=== PATIENT | male | born 1990 | race Hispanic/Latino ===

== ENCOUNTER 2017-07-16 17:51 | Emergency (ER) | payer OTHER ==
[2017-07-16 18:07] VITALS: TEMP 98.7
--- NOTE | 2017-07-16 18:46 | ED PDOC ---
Arrival/HPI - General Chief Complaint: Rib Injury Time Seen by Provider: 07/16/17 18:12 Historian: Patient - History of Present Illness Narrative History of Present Illness (Text): 07/16/17 19:30 26yo male with PMHx of Asthma who present to ED with complaint of right sided rib pain x 3days. He states he injured the rib 2days ago, when he tackled another player during a football game. States he did not take any pain medication. Pain is worse with deep inspiration and movement. Denies chest pain , SOB, diaphoresis, any other complaint. Past Medical History - Provider Review Nursing Documentation Reviewed: Yes - Cardiac Hx Cardiac Disorders: No - Pulmonary Hx Respiratory Disorders: Yes Hx Asthma: Yes - Neurological Hx Neurological Disorder: No - HEENT Hx HEENT Disorder: No - Renal Hx Renal Disorder: No - Endocrine/Metabolic Hx Endocrine Disorders: No - Hematological/Oncological Hx Blood Disorders: No - Integumentary Hx Dermatological Disorder: No - Musculoskeletal/Rheumatological Hx Musculoskeletal Disorders: Yes Other/Comment: KNEE INJURY - Gastrointestinal Hx Gastrointestinal Disorders: No - Genitourinary/Gynecological Hx Genitourinary Disorders: No - Psychiatric Hx Psychophysiologic Disorder: No Hx Substance Use: No - Surgical History Hx Orthopedic Surgery: Yes Family/Social History - Physician Review Nursing Documentation Reviewed: Yes Family/Social History: Unknown Family HX Smoking Status: Never Smoked Hx Alcohol Use: Yes Frequency of alcohol use: Socially Hx Substance Use: No Allergies/Home Meds Allergies/Adverse Reactions: Allergies No Known Allergies Allergy (Verified 07/16/17 18:02) Review of Systems - Physician Review All systems were reviewed & negative as marked: Yes - Review of Systems Constitutional: Normal Eyes: Normal ENT: Normal Respiratory: Normal Cardiovascular: Normal Gastrointestinal: Normal Genitourinary Male: Normal Musculoskeletal: Arthralgias (Right ribs pain) Skin: Normal Neurological: Normal Endocrine: Normal Hemo/Lymphatic: Normal Psychiatric: Normal Physical Exam Vital Signs Reviewed: Yes Vital Signs Temp Pulse Resp BP Pulse Ox 07/16/17 18:02 98.7 F 75 16 129/73 100 Temperature: Afebrile Blood Pressure: Normal Pulse: Regular Respiratory Rate: Normal Appearance: Positive for: Well-Appearing, Non-Toxic, Comfortable Pain Distress: None Mental Status: Positive for: Alert and Oriented X 3 - Systems Exam Head: Present: Atraumatic, Normocephalic Pupils: Present: PERRL Extroacular Muscles: Present: EOMI Conjunctiva: Present: Normal Mouth: Present: Moist Mucous Membranes Neck: Present: Normal Range of Motion Respiratory/Chest: Present: Clear to Auscultation, Good Air Exchange, Tender to Palpation (Right lateral and posterior ribs). No: Respiratory Distress, Accessory Muscle Use, Wheezes, Decreased Breath Sounds, Rales, Retracting, Rhonchi, Tachypneic Cardiovascular: Present: Regular Rate and Rhythm, Normal S1, S2. No: Murmurs Abdomen: No: Tenderness, Distention, Peritoneal Signs Back: Present: Normal Inspection Upper Extremity: Present: Normal Inspection. No: Cyanosis, Edema Lower Extremity: Present: Normal Inspection. No: Edema Neurological: Present: GCS=15, CN II-XII Intact, Speech Normal Skin: Present: Warm, Dry, Normal Color. No: Rashes Psychiatric: Present: Alert, Oriented x 3, Normal Insight, Normal Concentration Medical Decision Making ED Course and Treatment: 07/16/17 20:11 Right rib xray - No acute fracture noted. Pt was advised that he will be notify if official xray reading is different. His pain was controlled in ED with medication. He was given a spirometry and rx of Naprosyn was given for pain - RAD Interpretation Radiology Orders: 07/16/17 18:15 RIBS RIGHT & PA CHEST [RAD] Stat - Medication Orders Current Medication Orders: Discontinued Medications Ketorolac Tromethamine (Toradol) 60 mg IM STAT STA Stop: 07/16/17 18:16 Disposition/Present on Arrival - Present on Arrival Any Indicators Present on Arrival: No History of DVT/PE: No History of Uncontrolled Diabetes: No Urinary Catheter: No History of Decub. Ulcer: No History Surgical Site Infection Following: None - Disposition Have Diagnosis and Disposition been Completed?: Yes Diagnosis: Sprain of ribs Disposition: HOME/ ROUTINE Disposition Time: 19:35 Patient Plan: Discharge Patient Problems: Current Active Problems Problem Status Onset Sprain of ribs Acute Condition: STABLE Discharge Instructions (ExitCare): Bruised Rib (DC) Additional Instructions: Follow up with your Doctor Return to ED for any new or worsening symptoms Prescriptions: Naproxen [Naprosyn] 500 mg PO BID #20 tablet Referrals: Shweta Corona MD [Primary Care Provider] - Follow up with primary Forms: [employer] ([place])
[2017-07-16 20:51] VITALS: BP 130/71; PULSE 80; RESP 18; O2SAT 99
--- NOTE | 2017-07-17 09:46 | RAD ---
PROCEDURE: Radiographs of the Chest and Right Ribs. HISTORY: rib pain s/p trauma COMPARISON: None available. TECHNIQUE: Frontal radiograph of the chest and multiple oblique radiographs of the right ribs were obtained. FINDINGS: RIGHT RIBS: No acute fracture or focal lesion visualized. LUNGS: The lungs are well inflated and clear. PLEURA: No pneumothorax or pleural fluid. CARDIOVASCULAR: Normal sized heart. No pulmonary vascular congestion. OTHER FINDINGS: None. IMPRESSION: No acute rib fracture. Clear lungs.
== END 2017-07-16 20:23 | disposition home or self-care (01) ==
LOC: ED 17:51 → MERGE 17:51 → ED 20:23
DX: S23.41XA Sprain of ribs, initial encounter (principal); X50.0XXA Overexertion from strenuous movement or load, initial encounter; Y93.61 Activity, american tackle football; Y92.39 Other specified sports and athletic area as the place of occurrence of the external cause

== ENCOUNTER 2017-12-07 01:44 | Emergency (ER) | payer OTHER ==
[2017-12-07 01:45] VITALS: BMI 20.2
[2017-12-07 02:02] VITALS: TEMP 97.5
[2017-12-07] MEDS ORDERED: Alum-Mag Hydrox-Simethicone Susp (30 mL) PO STA (02:06)
--- NOTE | 2017-12-07 02:15 | ED PDOC ---
Arrival/HPI - General Chief Complaint: Chest Pain Time Seen by Provider: 12/07/17 01:45 Historian: Patient - History of Present Illness Narrative History of Present Illness (Text): 12/07/17 02:07 27 year old male, with past medical history of asthma, presents to the Emergency department accompanied by girl friend complaining of chest pain radiating to mid to upper back since 1:10 am this morning. Patient informs waking up with a sharp, shooting pain prompting him to present to the Emergency department for medical evaluation. Patient informs associated nausea but denies any episodes of vomiting. Patient states eating peanut butter and jelly sandwich and a protein bar before going to bed at 11pm last night. Pt notes pain occured after he vomited x1. Patient denies following up with a sheriffs in the past and denies any history of blood clots. Patient denies any fevers, chills, headache, dizziness, shortness of breath, dyspnea on exertion, cough, abdominal pain, diarrhea, neck pain, or any other complaints. Patient currently denies any social or work-related stress. Patient denies smoking tobacco and informs attending the gym 5 times a week. Time/Duration: Prior to Arrival Symptom Onset: Gradual Symptom Course: Unchanged Quality: Pressure Activities at Onset: Sleeping Context: Home Past Medical History - Provider Review Nursing Documentation Reviewed: Yes - Travel History Have you recently traveled outside [place] w/in the past 3 mons?: No - Infectious Disease Hx of Infectious Diseases: None - Cardiac Hx Cardiac Disorders: No - Pulmonary Hx Respiratory Disorders: Yes Hx Asthma: Yes - Neurological Hx Neurological Disorder: No - HEENT Hx HEENT Disorder: No - Renal Hx Renal Disorder: No - Endocrine/Metabolic Hx Endocrine Disorders: No - Hematological/Oncological Hx Blood Disorders: No - Integumentary Hx Dermatological Disorder: No - Musculoskeletal/Rheumatological Hx Musculoskeletal Disorders: Yes Other/Comment: KNEE INJURY - Gastrointestinal Hx Gastrointestinal Disorders: No - Genitourinary/Gynecological Hx Genitourinary Disorders: No - Psychiatric Hx Psychophysiologic Disorder: No Hx Substance Use: No - Surgical History Hx Orthopedic Surgery: Yes - Anesthesia Hx Anesthesia: No Family/Social History - Physician Review Nursing Documentation Reviewed: Yes Family/Social History: No Known Family HX Smoking Status: Never Smoked Hx Alcohol Use: Yes Hx Substance Use: No Allergies/Home Meds Allergies/Adverse Reactions: Allergies No Known Allergies Allergy (Verified 12/07/17 01:50) Review of Systems - Physician Review All systems were reviewed & negative as marked: Yes - Review of Systems Constitutional: absent: Fevers Respiratory: absent: SOB, Cough Cardiovascular: Chest Pain. absent: [place] Gastrointestinal: Nausea, Vomiting. absent: Abdominal Pain, Diarrhea Musculoskeletal: Back Pain. absent: Neck Pain Neurological: absent: Headache, Dizziness Physical Exam Vital Signs Reviewed: Yes Vital Signs Temp Pulse Resp BP Pulse Ox 12/07/17 02:29 60 13 102/68 97 12/07/17 02:00 97.5 F L 12/07/17 01:52 48 L 18 104/73 100 Temperature: Afebrile Blood Pressure: Normal Pulse: Bradycardic Respiratory Rate: Normal Appearance: Positive for: Well-Appearing, Non-Toxic, Comfortable Pain Distress: None Mental Status: Positive for: Alert and Oriented X 3 - Systems Exam Head: Present: Atraumatic, Normocephalic Pupils: Present: PERRL Extroacular Muscles: Present: EOMI Conjunctiva: Present: Normal Neck: Present: Normal Range of Motion Respiratory/Chest: Present: Clear to Auscultation, Good Air Exchange. No: Respiratory Distress, Accessory Muscle Use Cardiovascular: Present: Regular Rate and Rhythm, Normal S1, S2. No: Murmurs Abdomen: No: Tenderness, Distention, Peritoneal Signs Back: Present: Normal Inspection. No: CVA Tenderness, Paraspinal Tenderness Upper Extremity: Present: Normal Inspection. No: Cyanosis, Edema Lower Extremity: Present: Normal Inspection. No: Edema Neurological: Present: GCS=15, CN II-XII Intact, Speech Normal Skin: Present: Warm, Dry, Normal Color. No: Rashes Psychiatric: Present: Alert, Oriented x 3, Normal Insight, Normal Concentration Medical Decision Making ED Course and Treatment: 12/07/17 02:10 Impression: 27 year old male presents to the Emergency department for chest pain associated with nausea. Chest pain is not a ripping pain. Pt notes that father had a CA when father was young- but father was a very heavy smoker and pt is unsure if father did drugs. Pt denies any drug use. Pt kezia, in previous EKG. Pt notes that he is plays soccer alot and does gym x5 a week. Likely slow resting HR 2/2 excercise, physical fitness. Heart Score pending trop Story: 0 RF: 1 (father) age: 0 EK Troponin: pending Low Risk heart score. Plan: -- Labs -- Chest X-ray -- Pepcid -- Tylenol -- Maalox -- Reassess and disposition Prior Visits: Notes and results from previous visits were reviewed. Progress Notes: 12/07/17 02:08 EKG: Ordered, reviewed, and independently interpreted the EKG. Rate : 48 BPM Rhythm : Sinus Bradycardia Interpretation : Early repolarization. Comparison : Unchanged EKG from 09/18/14. 12/07/17 03:01 Chest X-ray reviewed, shows no acute processes. Unremarkable Chest X-ray. No widened mediastinum multiple episodes of vomiting per pt, followed by improvement in pain 12/07/17 03:52 Troponin negative Heart score 1: Low risk CP. 12/07/17 04:29 pt resting comfortable in bed, tolerating clears. stable for d/c home - Lab Interpretations Lab Results: 12/07/17 01:58 12/07/17 01:58 Lab Results 12/07/17 01:58: Sodium 142, Potassium 4.2, Chloride 103, Carbon Dioxide 23, Anion Gap 20, BUN 32 H, Creatinine 1.3, Est GFR ( Amer) > 60, Est GFR ( Non-Af Amer) > 60, Random Glucose 122 H, Calcium 9.5, Total Bilirubin 0.5, AST 36, ALT 35, Alkaline Phosphatase 82, Troponin I < 0.01, Total Protein 7.6, Albumin 4.6, Globulin 3.0, Albumin/Globulin Ratio 1.6, Lipase 132 12/07/17 01:58: WBC 13.4 H, RBC 4.61, Hgb 14.2, Hct 40.3 L, MCV 87.4, MCH 30.8, MCHC 35.2, RDW 12.6, Plt Count 337, MPV 8.5, Gran % 63.8, Lymph % (Auto) 27.4, Ware % (Auto) 7.7 H, Eos % (Auto) 1.0 L, Baso % (Auto) 0.1, Gran # 8.57 H, Lymph # (Auto) 3.7 H, Ware # (Auto) 1.0 H, Eos # (Auto) 0.1, Baso # (Auto) 0.02 - RAD Interpretation Radiology Orders: 12/07/17 01:58 CHEST TWO VIEWS (PA/LAT) [RAD] Stat - EKG Interpretation Interpreted by ED Physician: Yes Type: 12 lead EKG - Medication Orders Current Medication Orders: Discontinued Medications Acetaminophen (Tylenol 325mg Tab) 650 mg PO STAT STA Stop: 12/07/17 02:07 Last Admin: 12/07/17 02:14 Dose: 650 mg Al Hydrox/Mg Hydrox/Simethicone (Maalox Plus 30 Ml) 30 ml PO STAT STA Stop: 12/07/17 02:07 Last Admin: 12/07/17 02:14 Dose: 30 ml Famotidine (Pepcid) 20 mg IVP STAT STA Stop: 12/07/17 02:07 Last Admin: 12/07/17 02:14 Dose: 20 mg IVP Administration Document 12/07/17 02:14 CNR (Rec: 12/07/17 02:14 CNR [id number]) Charges for Administration # of IVP Administrations 1 Sodium Chloride (Sodium Chloride 0.9%) 1,000 mls @ 999 mls/hr IV .Q1H1M STA Stop: 12/07/17 04:00 Last Admin: 12/07/17 03:02 Dose: 999 mls/hr eMAR Start Stop Document 12/07/17 03:02 CNR (Rec: 12/07/17 03:02 CNR [id number]) Intravenous Solution Start Date 12/07/17 Start Time 03:02 End Date 12/07/17 End time 04:02 Total Infusion Time 60 Ketorolac Tromethamine (Toradol) 15 mg IVP STAT STA Stop: 12/07/17 03:03 Last Admin: 12/07/17 03:13 Dose: 15 mg MAR Pain Assessment Document 12/07/17 03:13 CNR (Rec: 12/07/17 03:13 CNR [id number]) Pain Reassessment Is this a pain reassessment? No IVP Administration Document 12/07/17 03:13 CNR (Rec: 12/07/17 03:13 CNR [id number]) Charges for Administration # of IVP Administrations 1 Ondansetron HCl (Zofran Inj) 4 mg IVP STAT STA Stop: 12/07/17 03:00 Last Admin: 12/07/17 03:02 Dose: 4 mg IVP Administration Document 12/07/17 03:02 CNR (Rec: 12/07/17 03:02 CNR [id number]) Charges for Administration # of IVP Administrations 1 - Scribe Statement The provider has reviewed the documentation as recorded by the Scribe Tamra Peterson. All medical record entries made by the Scribe were at my direction and personally dictated by me. I have reviewed the chart and agree that the record accurately reflects my personal performance of the history, physical exam, medical decision making, and the department course for this patient. I have also personally directed, reviewed, and agree with the discharge instructions and disposition. Disposition/Present on Arrival - Present on Arrival Any Indicators Present on Arrival: No History of DVT/PE: No History of Uncontrolled Diabetes: No Urinary Catheter: No History of Decub. Ulcer: No History Surgical Site Infection Following: None - Disposition Have Diagnosis and Disposition been Completed?: Yes Diagnosis: Chest wall pain, Gastritis Disposition: HOME/ ROUTINE Disposition Time: 04:30 Condition: GOOD Discharge Instructions (ExitCare): Chest Pain (ED), Gastritis (DC) Additional Instructions: SERGEY HICKS, thank you for letting us take care of you today. Your provider was Vernon Weiner and you were treated for chest pain. The emergency medical care you received today was directed at your acute symptoms. If you were prescribed any medication, please fill it and take as directed. It may take several days for your symptoms to resolve. Return to the Emergency Department if your symptoms worsen, do not improve, or if you have any other problems. Please contact your doctor or call one of the physicians/clinics you have been referred to that are listed on the Patient Visit Information form that is included in your discharge packet. Bring any paperwork you were given at discharge with you along with any medications you are taking to your follow up visit. Our treatment cannot replace ongoing medical care by a primary care provider outside of the emergency department. Thank you for allowing the [facility] team to be part of your care today. If you had an X-Ray or CT scan: A Radiologist will review the ED reading if any change in treatment is needed we will contact you. If you had a blood, urine, or wound culture: It will take several days for the results, if any change in treatment is needed we will contact you. If you had an STI test: It will take 48 hours for the results. Please call after 1 week if you have not heard back. Referrals: Danielle Norris [Primary Care Provider] - Follow up with primary Darinel Trujillo MD [Staff Provider] - Follow up with primary Forms: [employer] (Thai)
[2017-12-07 02:28] LABS: BASO # 0.02 K/mm3 (0.0-2.0); BASO % 0.1 % (0.0-3.0); EOS # 0.1 (0.0-0.7); GRAN # 8.57 (1.4-6.5); GRAN % 63.8 % (50.0-68.0); HEMOGLOBIN 14.2 g/dL (14.0-18.0); LYMPH # 3.7 (1.2-3.4); LYMPH % 27.4 % (22.0-35.0); MEAN CELL VOLUME 87.4 fl (80.0-105.0); MEAN CORPUSCULAR HEMOGLOBIN 30.8 pg (25.0-35.0); MEAN CORPUSCULAR HGB CONC 35.2 g/dl (31.0-37.0); MEAN PLATELET VOLUME 8.5 fl (7.0-11.0); MONO % 7.7 % (1.0-6.0); RBC 4.61 10^6/uL (3.5-6.1); RED CELL DISTRIBUTION WIDTH 12.6 % (11.5-14.5); WHITE BLOOD COUNT 13.4 10^3/ul (4.5-11.0)
[2017-12-07] MEDS ORDERED: Sodium Chloride 0.9% 1,000 ML IV STA (03:00)
[2017-12-07 03:26] LABS: ALB/GLOB RATIO 1.6 (1.1-1.8); ALBUMIN 4.6 g/dL (3.0-4.8); ALT/SGPT 35 U/L (7-56); AST/SGOT 36 U/L (17-59); BLOOD UREA NITROGEN 32 mg/dL (7-21); CALCIUM 9.5 mg/dL (8.4-10.5); GFR NON-AFRICAN AMERICAN > 60; LIPASE 132 U/L (23-300)
[2017-12-07 03:37] LABS: TROPONIN I < 0.01 ng/mL
[2017-12-07 04:42] VITALS: BP 107/64; PULSE 69; RESP 18; O2SAT 100
--- NOTE | 2017-12-07 09:10 | RAD ---
Date of service: 12/07/2017 HISTORY: chest pain COMPARISON: 07/16/2017 TECHNIQUE: Chest PA and lateral FINDINGS: LUNGS: No active pulmonary disease. PLEURA: No significant pleural effusion identified. No pneumothorax apparent. CARDIOVASCULAR: Normal. OSSEOUS STRUCTURES: No significant abnormalities. VISUALIZED UPPER ABDOMEN: Normal. OTHER FINDINGS: None. IMPRESSION: No active disease.
--- NOTE | 2017-12-08 05:12 | CARD ---
APPROVED REPORT Date of service: 12/07/2017 EKG Measurement Heart [id number] <Conclusion> Marked sinus bradycardia RSR' or QR pattern in V1 suggests right ventricular conduction delay Early repolarization Abnormal ECG
== END 2017-12-07 04:41 | disposition home or self-care (01) ==
LOC: ED 01:44
DX: R07.89 Other chest pain (principal); K29.70 Gastritis, unspecified, without bleeding
CPT/HCPCS: 71046; 80053; 83690; 84484; 85025; 93005; 96361; 96374; 96375; 99284; J1885; J2405; J7030